=== PATIENT | male | born 1990 | race Caucasian/White ===

== ENCOUNTER → 2020-12-03 18:52 | Outpatient (CLI) | payer OTHER, SELFPAY ==
--- NOTE | 2020-12-03 | DI.MRI.S_ITS ---
PROCEDURE: MR KNEE LT WO CON INDICATIONS: Pain in left knee TECHNIQUE: Noncontrast sagittal PD fast spin echo and T2 fast spin echo with fat saturation, sagittal 3-D FLASH with fat saturation; coronal T1 spin echo and PD fast spin echo with fat saturation, and axial PD fast spin echo with fat saturation through the knee. COMPARISON: None. FINDINGS: Menisci: Medial meniscus: Intact. Lateral meniscus: Intact. Cruciate ligaments: Anterior cruciate ligament: Intact. Posterior cruciate ligament: Intact. Medial structures: The medial collateral ligament: Intact. Semimembranosus tendon: Intact. Visualized pes anserinus tendons: Intact. Bursal fluid: There is mild fluid deep to the pes anserinus tendon insertion on image 32/6. Lateral structures: The lateral collateral ligament intact. Biceps femoris tendon appears intact. Popliteus tendon grossly unremarkable. Iliotibial band appears intact. Anterior structures: Quadriceps tendon intact. Medial and lateral patellofemoral ligaments intact. There is high-grade near complete rupture of the proximal patellar tendon with associated fluid and edema as well as marked thickening. There is tendinopathy of the remaining patellar tendon. Mild deep infrapatellar bursal fluid is present. Hoffa's fat pad unremarkable. Bones and cartilage: Marrow: No focal marrow contusion or discrete low signal fracture line. Medial compartment: Mild surface fraying of the femoral and tibial articular cartilage. No focal defect. Lateral compartment: No chondral defect. Patellofemoral compartment: Mild surface fraying of the cartilage overlying the lateral patellar facet. No focal chondral defect. Joint space: No joint effusion. No Valladares's cyst. No specific evidence of intra-articular loose body. IMPRESSION: High-grade near complete rupture of the proximal patellar tendon with associated fluid and edema. Mild pes anserinus bursitis. Dictated by: Gabriele Sharma M.D. on 12/04/2020 at 9:17 Approved by: Gabriele Sharma M.D. on 12/04/2020 at 9:34
== END ==
PROVIDERS: PCP Student in an Organized Health Care Education/Training Program; Referring Provider Student in an Organized Health Care Education/Training Program; Visit Provider Student in an Organized Health Care Education/Training Program
DX: M25.562 Pain in left knee (principal); S76.112A Strain of left quadriceps muscle, fascia and tendon, initial encounter; M70.52 Other bursitis of knee, left knee
CPT/HCPCS: 73721